=== PATIENT | female | born 1940 | race Asian ===

== ENCOUNTER → 2019-07-27 | Day surgery (SDC) | payer OTHER, MEDICAID ==
[~2019-07-27] VITALS: Ht 149.9 cm; Wt 52.2 kg
[2019-07-27 07:39] VITALS: BP 134/62
[2019-07-27 13:53] VITALS: BP 139/68
== END | disposition home or self-care (01) ==
LOC: DS 06:02 → OR 16:00 → DS 16:00
DX: K80.10 Calculus of gallbladder with chronic cholecystitis without obstruction (principal); Z86.73 Personal history of transient ischemic attack (TIA), and cerebral infarction without residual deficits; I12.9 Hypertensive chronic kidney disease with stage 1 through stage 4 chronic kidney disease, or unspecified chronic kidney disease; N18.9 Chronic kidney disease, unspecified; I25.10 Atherosclerotic heart disease of native coronary artery without angina pectoris; G30.9 Alzheimer's disease, unspecified; F02.80 Dementia in other diseases classified elsewhere, unspecified severity, without behavioral disturbance, psychotic disturbance, mood disturbance, and anxiety; Z79.82 Long term (current) use of aspirin; Z79.899 Other long term (current) drug therapy; Z98.890 Other specified postprocedural states
CPT/HCPCS: J0690; J2270; J2405; J2704; J2710; J3010; J3490

== ENCOUNTER 2019-07-28 12:41 | Emergency (ER) | payer OTHER ==
[~2019-07-28] VITALS: Ht 152.4 cm; Wt 56.7 kg
[2019-07-28 12:57] VITALS: BP 120/55; Ht 152.4 cm; Wt 56.7 kg
== END 2019-07-28 15:42 | disposition left against medical advice (07) ==
LOC: ED 12:41
DX: Z53.21 Procedure and treatment not carried out due to patient leaving prior to being seen by health care provider (principal)